=== PATIENT | male | born 1945 | race Caucasian/White ===

== ENCOUNTER 2022-02-03 06:32 | Day surgery (SDC) | payer MEDICARE ==
--- NOTE | 2022-01-28 13:28 | Anesthesia Consultation ---
Anesthesia Consult and Med Hx Date of service: 02/03/22 - Airway Anesthetic Teeth Evaluation: Caps ROM Head & Neck: Adequate Mental/Hyoid Distance: Adequate Mallampati Class: Class II Intubation Access Assessment: Probably Good - Pre-Operative Health Status ASA Pre-Surgery Classification: ASA3 Proposed Anesthetic Plan: General - Pulmonary Hx Smoking: No Hx Respiratory Symptoms: No (Active; +2FS) Hx Sleep Apnea: Yes (DX SLEEP APNEA WITH CPAP USE.) - Cardiovascular System Hx Hypertension: No Hx Heart Attack/AMI: No (Pt reports negative NST last year) - Central Nervous System Hx Back Pain: Yes Hx Psychiatric Problems: Yes - Gastrointestinal Hx Gastroesophageal Reflux Disease: No - Endocrine Hx Non-Insulin Dependent Diabetes: Yes (HgbA1C 6.2. No meds and pt denies DM) - Hematic Hx Anemia: No Hx Sickle Cell Disease: No - Other Systems Hx Alcohol Use: Yes (OCC.) Hx Substance Use: No Hx Cancer: No - Additional Comments Anesthesia Medical History Comments: Cardiac and med clearances pending
[~2022-02-03 06:32] MED LIST: ACETAMINOPHEN 325 MG TAB PO SCH; LACTATED RINGERS 1,000 ML IV SCH; MIDAZOLAM 2 MG/2 ML INJ IV NR
--- NOTE | 2022-02-03 07:27 | Anesthesia Day of Surgery ---
Anesthesia Day of Surgery - Day of Surgery Patient Examined: Yes Patient H&P Reviewed: Yes Patient is NPO: Yes Cardiac Clearance: Yes
[2022-02-03] MEDS ORDERED: HYDROcodone/ACETAMINOPHEN 5-325 MG TAB PO PRN (07:42)
[2022-02-03] MEDS ORDERED: fentaNYL 100 MCG/2 ML INJ IV PRN (07:42)
[2022-02-03] MEDS ORDERED: ceFAZolin/STERILE WATER 2 GM/20 ML SYRINGE IV NR (08:00)
[2022-02-03] MEDS ORDERED: ceFAZolin/Water 2 GM/20 ML 2 GM/20 ML SYRINGE IV ONE (08:20)
[2022-02-03] MEDS ORDERED: propofoL 200 MG/20 ML VIAL IV ONE (09:08)
[2022-02-03] MEDS ORDERED: fentaNYL 100 MCG/2 ML INJ ONE (09:13)
[2022-02-03] MEDS ORDERED: SODIUM CHLORIDE 0.9% IRRIG SOLN 3000 ML IR ONE (09:21)
[2022-02-03] MEDS ORDERED: WATER FOR IRRIG STERILE 1,000 ML BOTTLE IR ONE (09:21)
[2022-02-03] MEDS ORDERED: GLYCOPYRROLATE 0.4 MG/2 ML INJ ONE (09:55)
[2022-02-03] MEDS ORDERED: dexAMETHasone 20 MG/5 ML VIAL ONE (09:55)
[2022-02-03] MEDS ORDERED: ONDANSETRON 4 MG/2 ML INJ ONE (09:55)
--- NOTE | 2022-02-03 11:51 | Operative Report ---
DATE OF SURGERY: 02/03/2022 DATE OF PROCEDURE: 02/03/2022 at approximately 9 a.m. PREOPERATIVE DIAGNOSES: Benign prostatic hyperplasia with worsening lower urinary tract symptoms. POSTOPERATIVE DIAGNOSES: Benign prostatic hyperplasia with worsening lower urinary tract symptoms. OPERATIVE PROCEDURE: TURP/TUVEP. ATTENDING: Donovan Fuentes MD NATURAL RESOURCE MANAGER: None. ANESTHESIA: General. ESTIMATED BLOOD LOSS: 10 mL DRAINS: A 22-[place] 3-way Yoo catheter. SPECIMENS: TUR chips. COMPLICATIONS: None. INDICATIONS FOR PROCEDURE: The patient is a 76-year-old man with worsening lower urinary tract symptoms because of BPH. Cystoscopy revealed a large median lobe that seemed to be the primary source of his obstruction. After failing medical therapy, the patient wished to proceed with surgical reduction. Given the size of the patient's median lobe, I felt that a TURP/TUVEP would be the best course of treatment. The patient agreed. DESCRIPTION OF PROCEDURE IN DETAIL: After induction of suitable anesthesia and proper positioning and preparation in the dorsal lithotomy position, a resectoscope was used to enter the bladder under direct visualization. There were no urethral strictures. There were no bladder or urethral mucosal lesions. The patient had mostly a median lobe obstruction. There was some protuberance of the patient's left lateral lobe. Using the button electrocautery first, the bladder neck was taken down at 5 and 7 o'clock. The ureteral orifices were identified prior to doing this and were always kept inside. The incisions at 5 and 7 o'clock were carried down to the circular fibers of the bladder neck. They were extended to the floor of the prostate, well clear of the verumontanum. Once these incisions were complete, the median lobe was well delineated. The loop electrocautery was then used to take down the median lobe and smooth out the bladder neck and floor of the prostate. The TUR chips were removed at the end of the procedure. Once the median lobe was taken down, a small portion of the patient's left lateral lobe was also resected in order to remove any obstructive prostate adenoma. The remainder of the procedure was spent on obtaining hemostasis, which was done by the end of the procedure. A little extra tissue was taken off the floor to smooth things out. At the end of the procedure, the patient had a very nice resection and the prostatic bed was completely hemostatic. All the chips had been removed. At this point, the resectoscope was removed and a Yoo catheter was placed without difficulty. The 3-way irrigation was started and would carry on into the recovery room. The patient's irrigation will be stopped prior to discharge home today. The patient was awakened from anesthesia and transported to the recovery room in stable condition. He tolerated the procedure well. The patient will return to the office tomorrow for catheter removal as long as urine is still clear. TID: [id number] RECEIPT: [id number] FLIP/OSMAN
[2022-02-03 12:23] VITALS: BP 138/79
--- NOTE | 2022-02-03 13:44 | Post Anesthesia Evaluation ---
- Post Anesthesia Evaluation Patient Participated: Yes Airway Patent: Yes Stable Respiratory Function: Yes Nausea/Vomiting: No Temp > 96.8F: Yes Pain Manageable: Yes Adequeate Hydration: Yes Anesthesia Complications: No
== END 2022-02-03 12:00 | disposition home or self-care (01) ==
LOC: OR 06:32
PROVIDERS: ATTEND Urology
DX: N40.1 Benign prostatic hyperplasia with lower urinary tract symptoms (principal); Z20.822 Contact with and (suspected) exposure to COVID-19; E78.00 Pure hypercholesterolemia, unspecified; G47.30 Sleep apnea, unspecified; K21.9 Gastro-esophageal reflux disease without esophagitis; M19.90 Unspecified osteoarthritis, unspecified site; E11.9 Type 2 diabetes mellitus without complications; F41.9 Anxiety disorder, unspecified; Z79.899 Other long term (current) drug therapy; Z88.8 Allergy status to other drugs, medicaments and biological substances; Z79.82 Long term (current) use of aspirin; Z72.89 Other problems related to lifestyle; Z98.890 Other specified postprocedural states
CPT/HCPCS: 52601; 82962; 86850; 86900; 86901; 88305; J0690; J1100; J1815; J2405; J2704; J3010; J7120; U0003